=== PATIENT | female | born 1980 | race African-American/Black ===

== ENCOUNTER 2016-06-18 15:58 | Emergency (ER) ==
[2016-06-18 16:12] VITALS: BP 145/82
--- NOTE | 2016-06-18 16:19 | PROVIDER DOCUMENTATION ---
HPI-Abdominal Pain/GI Problem - General Chief Complaint: Flank Pain Stated Complaint: LEFT SIDE ABD PAIN/11 WEK PREG Time Seen by Provider: 06/18/16 16:14 Source: patient Allergies/Adverse Reactions: Patient Allergies Allergy/AdvReac Type Severity Reaction Status Date / Time No Known Allergies Allergy Verified 11/07/15 10:01 Home Medications: Clonidine [Catapres] 0.2 mg PO BID 06/28/14 - History of Present Illness-ABD Nature of Presenting Problems: 36 y/o AAF , approx 11 wks by LMP in March, week, reports left flank pain that began this morning that is stabbing non radiating comes and goes, denies hematuria, frequency, dysuria or urgency. denies fevers or chills. Also having sinus congestion. Denies vaginal bleeding or vaginal discharge. No hx of kidney stones. Review of Systems - Adult - REVIEW OF SYSTEMS - ADULT Constitutional: reports: no symptoms reported. denies: chills, fever, fatique Eyes: reports: no symptoms reported. denies: blurred vision, double vision, eye pain Ears, Nose, Mouth & Throat: reports: no symptoms reported. denies: ear pain, nose pain, throat pain Cardiovascular: reports: no symptoms reported. denies: chest pain, palpitations Respiratory: reports: no symptoms reported. denies: cough, shortness of breath , wheezing Gastrointestinal: reports: see HPI, abdominal pain. denies: diarrhea, nausea, vomiting Genitourinary: reports: see HPI, flank pain (left). denies: dysuria, discharge , frequency, hematuria, urgency Musculoskeletal: reports: no symptoms reported Integumentary: reports: no symptoms reported. denies: rash Neurological: reports: no symptoms reported. denies: ataxia, dizziness/vertigo , headache/migraines Psychiatric: reports: no symptoms reported Endocrine: reports: no symptoms reported Hematologic/Lymphatic: reports: no symptoms reported Allergic/Immunologic: reports: no symptoms reported All Other Systems: Reviewed and Negative Past History - Adult - PAST MEDICAL HISTORY-ADULT Review of Records: reports: Old Records Reviewed, Nursing Assessment Review, Medications Reviewed, Social history reviewed & non-contributory. Major Childhood Illnesses: reports: denies history Cardiovascular: reports: HTN Respiratory: reports: denies history Gastrointestinal: reports: denies history Obstetrical/Gynecological: reports: denies history Genitourinary: reports: denies history Musculoskeletal: reports: denies history Neurological: reports: denies history Endocrine/Immune: reports: Diabetes Other Conditions: reports: denies history - PRIOR SURGERIES/PROCEDURES Surgical/Procedure History: reports: - PRIOR HOSPITALIZATIONS Prior Hospitalizations: reports: none - IMMUNIZATION STATUS Childhood Immunizations: See Nurse Assessment Flu Vaccine: See Nurse Assessment - FAMILY HISTORY Family History: reviewed, not pertinent Physical Exam-General - PHYSICAL EXAM-ADULT Initial Vital Signs Reviewed: Yes - CONSTITUTIONAL General Appearance: appears well, alert, no apparent distress - EYES Eyes: PERRL/EOMI, pink conjunctivae - HEAD, EARS, NOSE, MOUTH & THROAT HENMT: normocephalic/atraumatic, moist mucous membranes - NECK Neck: non-tender, full range of motion, supple, normal inspection. negative: lymphadenopathy - RESPIRATORY Respiratory: chest non-tender, lungs clear, normal breath sounds, no pleuratic chest pain, no respiratory distress, no accessory muscle use. negative: respiratory distress, decreased breath sounds, accessory muscle use, crackles, rales, rhonchi, wheezing - CARDIOVASCULAR Cardiovascular: normal peripheral pulses, regular rate, rhythm, no edema - GASTROINTESTINAL (ABDOMEN) Abdominal Exam: normal bowel sounds, soft, no organomegaly, no pulsatile mass, tenderness (suprapubic). negative: abdominal bruit, abnormal bowel sounds, distended, guarding, rigid, rebound - LYMPHATIC Lymphatic: no adenopathy - MUSCULOSKELETAL Back Exam: normal inspection, no CVA tenderness. negative: CVA tenderness Extremity: normal range of motion, non-tender, normal gait - SKIN Integumentary: normal color, normal turgor, warm/dry - NEUROLOGIC Neurologic: grossly normal, no motor/sensory deficits - PSYCHIATRIC Psych/Mental Status: normal mood/affect, normal thought content, normal thought process, oriented x 3 Progress - REASSESSMENT Reassessment #1 Time Reassessed: 16:26 (FHTs not specifically detected but movement detected per L&D nurse) Status: other Departure - Departure Time of Disposition Order: 17:00 DIAGNOSIS: Left against medical advice Disposition: [place] [id number] Certified Medical Emergency: Emergent Condition: Stable Referrals: None,PCP [Primary Care Provider] - Attestation - Physician/ Mid-level Attestation Patient care was provided by Mid-level provider (ANGIO TECHNOLOGIST/PA):: Yes Mid-level provider:: Maricarmen Gomez Mid-level documentation review:: The Mid-level provider documentation, treatment plan and medical decision making was reviewed by the physician who agrees with all treatment and medical decision making by the MLP.
== END 2016-06-18 17:50 | disposition left against medical advice (07) ==
LOC: P.ED 15:58
DX: O26.891 Other specified pregnancy related conditions, first trimester (principal); Z3A.11 11 weeks gestation of pregnancy; R10.30 Lower abdominal pain, unspecified; R10.9 Unspecified abdominal pain; O16.1 Unspecified maternal hypertension, first trimester; O24.911 Unspecified diabetes mellitus in pregnancy, first trimester; Z79.899 Other long term (current) drug therapy; Z79.52 Long term (current) use of systemic steroids
CPT/HCPCS: 99282

== ENCOUNTER 2016-12-30 04:57 | Inpatient (IN) ==
--- NOTE | 2016-12-29 13:43 | HISTORY AND PHYSICAL ---
ADMITTING DIAGNOSIS: Term , for repeat section. SUMMARY: Bharti Bills is a 36-year-old, 3, para 2-0-0-2 at term gestation. Her has been complicated by chronic hypertension. She is on antihypertensives. She also is an insulin-requiring diabetic. We are therefore proceeding with a repeat . Risk of the surgery including pain, bleeding, infection, bowel or bladder injury, and anesthesia complications have been discussed in detail. I feel it is necessary to deliver her for 39 weeks due to her conditions. This has also been recommended by maternal medicine. PAST MEDICAL HISTORY: Patient has had 2 previous C-sections for cephalopelvic disproportion. She has chronic hypertension. She has diabetes. PHYSICAL EXAMINATION: GENERAL: Shows a short-statured gravid female. Her weight is 183 pounds. Blood pressure is 130/72. CARDIOVASCULAR: Regular rate and rhythm without murmurs, rubs, gallops. PULMONARY: Clear. BREASTS: No masses. ABDOMEN: Gravid. Cervix is closed. EXTREMITIES: Trace edema. IMPRESSION: 1. Term . 2. Previous section times two. PLAN: We will proceed with repeat . Risks, benefits, possible complications, obstetrical indications have been discussed in detail. cc: Elias Guaman MD
[2016-12-30] MEDS ORDERED: KEFZOL 1 GM/D5W 1 GM/50 ML IVPB IV PRN (05:00)
[2016-12-30] MEDS ORDERED: LR 1,000 ML IV SCH (05:00)
[2016-12-30] MEDS ORDERED: BICITRA PO ONE (05:30)
[2016-12-30] MEDS ORDERED: PEPCID IV ONE (05:30)
[2016-12-30 06:15] LABS: MANUAL DIFF NEEDED? NO
[2016-12-30 06:35] LABS: BASO% 0.2 % (0.0-0.8); EOS# 0.06 X1000 (0.0-0.7); EOS% 0.5 % (0.0-10.0); HEMOGLOBIN 11.4 g/dL (12.0-16.0); IMM GRAN# 0.04 X1000 (0.0-0.04); IMM GRAN% 0.3 % (0.0-0.5); LYMPH# 2.08 X1000 (1.2-3.4); LYMPH% 18.1 % (20.5-51.1); MCH 28.6 PG (27-31); MCHC 33.5 g/dL (33-37); MCV 85.2 FL (81-99); MONO# 1.17 X1000 (0.11-0.59); MONO% 10.2 % (1.7-9.3); MPV 11.6 FL (7.4-10.4); NEUT% 70.7 % (42.2-75.2); PLT 201 X1000 (130-400); RBC 3.99 XMIL (4.2-5.4)
[2016-12-30] MEDS ORDERED: EPHEDRINE ONE (06:38)
[2016-12-30] MEDS ORDERED: DIPRIVAN 1% ONE (06:39)
[2016-12-30] MEDS ORDERED: DURAMORPH ONE (06:40)
[2016-12-30 07:58] LABS: URINE SOURCE VOIDED
[2016-12-30 08:08] LABS: UR AMPHETAMINES QUAL NONE DETECTED (NONE DETECT); UR BARBITUATES QUAL NONE DETECTED (NONE DETECT); UR BENZODIAZEPIN QUAL NONE DETECTED (NONE DETECT); UR CANNABINOIDS QUAL NONE DETECTED (NONE DETECT); UR COCAINE QUAL NONE DETECTED (NONE DETECT); UR MDMA QUAL NONE DETECTED (NONE DETECT); UR METHADONE QUAL NONE DETECTED (NONE DETECT); UR METHAMPHETAMINE QUAL NONE DETECTED (NONE DETECT); UR OPIATES QUAL NONE DETECTED (NONE DETECT); UR OXYCODONE QUAL NONE DETECTED (NONE DETECT); UR PCP QUAL NONE DETECTED (NONE DETECT); UR TCA QUAL NONE DETECTED (NONE DETECT)
[2016-12-30 08:10] LABS: BILIRUBIN URINE NEGATIVE (NEGATIVE); BLOOD URINE NEGATIVE (NEGATIVE); CLARITY CLEAR (CLEAR); COLOR YELLOW; LEUKOCYTES URINE 1+ (NEGATIVE); NITRITE URINE NEGATIVE (NEGATIVE); PROTEIN URINE NEGATIVE (NEGATIVE); UROBILINOGEN URINE NORMAL
[2016-12-30] MEDS ORDERED: NORCO-5 PO PRN (08:25)
[2016-12-30] MEDS ORDERED: PITOCIN IM PRN (08:25)
[2016-12-30] MEDS ORDERED: DEMEROL PO PRN ×2 (08:25)
[2016-12-30] MEDS ORDERED: NORCO-10 PO PRN (08:25)
[2016-12-30] MEDS ORDERED: M-M-R II VACCINE SUBQ ONE (08:25)
[2016-12-30] MEDS ORDERED: HYDROXYZINE PO PRN (08:25)
[2016-12-30] MEDS ORDERED: HYDROXYZINE IM PRN (08:25)
[2016-12-30] MEDS ORDERED: DULCOLAX PR PRN (08:25)
[2016-12-30] MEDS ORDERED: PERCOCET-5 PO PRN (08:25)
[2016-12-30] MEDS ORDERED: BOOSTRIX VACCINE IM ONE (08:25)
[2016-12-30] MEDS ORDERED: NEO-SYNEPHRINE ONE (08:25)
[2016-12-30] MEDS ORDERED: PITOCIN 20 UNITS/LR 20 UNITS/1,000 ML IV.SOLN IV ONE (08:25)
[2016-12-30] MEDS ORDERED: PHENERGAN IM PRN (08:25)
[2016-12-30] MEDS ORDERED: ZOFRAN ONE (08:25)
[2016-12-30] MEDS ORDERED: CYTOTEC PO PRN (08:25)
[2016-12-30] MEDS ORDERED: DEMEROL IM PRN (08:25)
[2016-12-30] MEDS ORDERED: AMBIEN PO PRN (08:25)
[2016-12-30] MEDS ORDERED: PITOCIN ONE (08:26)
[2016-12-30] MEDS ORDERED: NARCAN INJ PRN (08:32)
[2016-12-30] MEDS ORDERED: ZOFRAN ODT PO PRN (08:32)
[2016-12-30] MEDS ORDERED: ZOFRAN IV PRN ×2 (08:32)
[2016-12-30] MEDS ORDERED: BENADRYL IV PRN (08:32)
[2016-12-30] MEDS ORDERED: OFIRMEV 1000 MG/ISOTONIC SOLN 1,000 MG/100 ML BOTTLE IV PRN (08:33)
[2016-12-30] MEDS: MORPHINE IV PRN (08:55)
[2016-12-30] MEDS: OFIRMEV 1000 MG/ISOTONIC SOLN 1,000 MG/100 ML BOTTLE IV SCH ×3 (08:56→20:02)
[2016-12-30] MEDS ORDERED: GLUCOPHAGE PO SCH (09:00)
[2016-12-30] MEDS: MYLICON PO SCH ×3 (11:19→21:09)
[2016-12-30] MEDS: ADALAT CC PO SCH (11:19)
[2016-12-30] MEDS: GLUCOPHAGE PO SCH ×2 (11:20→16:38)
[2016-12-30] MEDS: DIABETA PO SCH (11:20)
[2016-12-30] MEDS: TRANDATE PO SCH ×2 (11:21→21:15)
[2016-12-30 12:30] LABS: HEMATOCRIT 31.1 % (37.0-47.0); HEMOGLOBIN 10.2 g/dL (12.0-16.0)
--- NOTE | 2016-12-30 14:49 | OPERATIVE NOTE ---
PROCEDURE DATE: 12/30/2016 SURGEON: Dr. Elias Guaman. RESULTS TECHNICIAN: Dr. Elias Bojorquez. ANESTHESIA: Spinal and IV sedation by Dr. Nathan Olmos. OPERATION PERFORMED: Repeat low transverse section. PREOPERATIVE DIAGNOSES: 1. A 38-1/2-week . 2. Chronic hypertension. 3. Insulin-requiring diabetes. 4. Previous section x2. POSTOPERATIVE DIAGNOSES: 1. A 38-1/2-week . 2. Chronic hypertension. 3. Insulin-requiring diabetes. 4. Previous section x2. 5. Extensive pelvic adhesions. FINDINGS: At 0711, a 6-pound 15-ounce male was delivered in a vertex presentation. Apgars were 7 at one minute and 9 at five minutes. SUMMARY: Ms. Bills was taken back to the operating room, where spinal anesthetic was placed. She was then placed in supine position with a left lateral tilt. The abdomen was prepped and draped in usual fashion. A Sandy catheter was placed in the urinary bladder. Once satisfactory conduction anesthesia was demonstrated, a Pfannenstiel incision was made. This was taken down to the fascia, where the fascia was incised transversely with moderate difficulty due to her extensive adhesions. Again with difficulty due to adhesions, the rectus muscle was dissected away and the peritoneum was entered. There were again adhesions encountered and myometrial adhesions to the abdominal wall were taken down. This allowed us to create a bladder flap and then a low transverse incision was made. This incision was taken down to the amniotic membranes. The incision was extended laterally using digital pressure. Membranes were ruptured, revealing clear fluid. The 's vertex was delivered through this incision without difficulty. The oropharynx was bulb suctioned. The shoulders and body delivered without complications. The cord was clamped, cut, and the infant was handed to the nurses for care and evaluation. Cord blood was obtained. Placenta was manually removed. The uterus was delivered onto the abdominal wall and explored. All membrane fragments were removed. The myometrium was then reapproximated using multiple running and [id number] chromic sutures due to extensive bleeding. Bleeding was especially severe on the patient's left side. We had to incorporate the round ligament into the incision to help achieve hemostasis. Again, multiple sutures were required and finally hemostasis was achieved. The uterus was placed back in the pelvic cavity. There were a few other bleeding spots identified at this point, where several more [id number] chromic sutures and cautery was used to achieve hemostasis. We then put Surgicel in through the left lateral incision for added hemostasis. Sponge, instrument, and needle counts were reported as correct at this time. The rectus muscle was reapproximated in the midline using interrupted chromic sutures. Second sponge and instrument counts were reported as correct. The fascia was closed using running Vicryl sutures x2. Again, this was moderately difficult due to the extensive adhesions. We then reapproximated the skin edges using Vicryl suture. Blood loss was estimated at 1000 mL. The patient had received IV sedation during the surgery due to pain. We will check a hemoglobin and hematocrit at noontime. We will watch her blood sugars closely and we will start her oral hypoglycemic agents. cc: Elias Guaman MD
[2016-12-30] MEDS: PERCOCET-10 PO PRN (16:18)
[2016-12-30] MEDS: PITOCIN 10 UNITS/LR 10 UNIT/1,000 ML IV.SOLN IV SCH (17:03)
[2016-12-30] MEDS: MYLICON PO PRN (20:02)
[2016-12-30] MEDS: PERICOLACE PO SCH (21:15)
[2016-12-31] MEDS: OFIRMEV 1000 MG/ISOTONIC SOLN 1,000 MG/100 ML BOTTLE IV SCH (02:18)
[2016-12-31] MEDS: PITOCIN 10 UNITS/LR 10 UNIT/1,000 ML IV.SOLN IV SCH (02:18)
[2016-12-31] MEDS: MYLICON PO PRN ×2 (04:50→12:08)
[2016-12-31 06:10] LABS: HEMATOCRIT 30.4 % (37.0-47.0); HEMOGLOBIN 9.8 g/dL (12.0-16.0); MCH 27.7 PG (27-31); MCHC 32.2 g/dL (33-37); MCV 85.9 FL (81-99); MPV 11.9 FL (7.4-10.4); RBC 3.54 XMIL (4.2-5.4)
[2016-12-31] MEDS ORDERED: LR 1,000 ML IV SCH (07:59)
[2016-12-31] MEDS: PERCOCET-10 PO PRN ×3 (09:05→15:31)
[2016-12-31] MEDS: DIABETA PO SCH (09:07)
[2016-12-31] MEDS: GLUCOPHAGE PO SCH ×2 (09:07→18:08)
[2016-12-31] MEDS: ADALAT CC PO SCH (09:08)
[2016-12-31] MEDS: TRANDATE PO SCH ×2 (09:08→21:18)
[2016-12-31] MEDS: PRECARE PO SCH (09:09)
[2016-12-31] MEDS: MYLICON PO SCH ×4 (09:10→21:18)
--- NOTE | 2016-12-31 13:06 | PROGRESS NOTE ---
DATE: 12/31/2016 SUBJECTIVE: She is post and postop day 1 from a repeat delivery. OBJECTIVE: Vital Signs: Temperature 98.4 degrees, pulse 104, blood pressure 137/70. Respirations 20. She is sitting in the chair. She seems to be in mild distress but communicates without difficulty. PHYSICAL EXAMINATION: Lungs are clear. Heart: Regular sinus rhythm. Abdomen is slightly distended and tense to the touch. No rebound. Incision is dry and intact. +2 lower extremity edema. LABORATORY VALUES: Hemoglobin and hematocrit of 9.8/30.4. Glucose this morning at 2:00 was 58 and then at 8:00 this morning 67. No other abnormal values, so we will continue current management with probable discharge in the morning. cc: MD Elias Choi MD
[2016-12-31] MEDS: NICODERM PATCH TD SCH (15:23)
[2016-12-31] MEDS: MOTRIN PO PRN (15:31)
[2016-12-31] MEDS ORDERED: FLEET ENEMA PR PRN (17:30)
[2016-12-31] MEDS ORDERED: CITRATE OF MAGNESIA PO ONE (20:05)
[2016-12-31] MEDS: PERICOLACE PO SCH (21:17)
[2017-01-01] MEDS: MYLICON PO PRN (01:15)
[2017-01-01] MEDS: MOTRIN PO PRN (01:15)
[2017-01-01] MEDS: GLUCOPHAGE PO SCH (08:57)
[2017-01-01] MEDS: MYLICON PO SCH ×2 (08:57→12:35)
[2017-01-01] MEDS: DIABETA PO SCH (08:57)
[2017-01-01] MEDS: ADALAT CC PO SCH (08:57)
[2017-01-01] MEDS: TRANDATE PO SCH (08:57)
[2017-01-01] MEDS: PRECARE PO SCH (08:57)
[2017-01-01] MEDS: NICODERM PATCH TD SCH (08:57)
--- NOTE | 2017-01-01 11:27 | PROGRESS NOTE ---
DATE: 01/01/2017 SUBJECTIVE: She is postop and day 2. Ms. Bills complains of abdominal pain and distention. She has not passed gas, and she was nauseated with magnesium citrate and thinks she would feel better if she had a bowel movement. OBJECTIVE: Temperature is 96.5, she has been afebrile since surgery. Pulse low 100s, blood pressure 145/86, respirations 20. She is in moderate distress with abdominal distention. Lungs: Clear. Heart: Regular sinus rhythm. Abdomen: Very tense with mild guarding. No rebound. There is +2 lower extremity edema. ASSESSMENT AND PLAN: We did try enemas yesterday, both Fleets and soapsuds and did try magnesium citrate which she did not tolerate very well. She has bowel sounds. We will get a KUB today. If it appears to be just constipation, we will treat with Linzess. If it is obstruction, we will make n.p.o. and possibly place NG tube. cc: MD Elias Choi MD
--- NOTE | 2017-01-01 11:28 | Diag Imaging Result Doc PS360 ---
ABDOMEN FLAT/UPRIGHT - 01/01/2017 INDICATION: abd distention TECHNIQUE: Two views COMPARISON: 02/23/2015 FINDINGS: There is moderate constipation of the proximal colon. There are numerous abnormally dilated loops of small bowel in the lower abdomen and pelvis. These measure up to 4.9 cm. There are also numerous air-fluid levels. Very little colon or rectal gas. No definite free air. IMPRESSION: 1. Findings highly concerning for small bowel obstruction. 2. Constipation. Electronically signed by Tom Varghese 01/01/2017 11:26 AM
[2017-01-01] MEDS ORDERED: LINZESS PO SCH (12:00)
[2017-01-01] MEDS ORDERED: NS 500 ML IV ONE (12:09)
[2017-01-01] MEDS: NS 1,000 ML IV SCH ×2 (13:15→20:12)
[2017-01-01] MEDS ORDERED: ZOFRAN IV PRN (17:10)
[2017-01-01] MEDS ORDERED: TORADOL IV PRN (17:10)
[2017-01-01] MEDS ORDERED: CHLORASEPTIC SPRAY MT PRN (18:12)
--- NOTE | 2017-01-01 19:25 | Diag Imaging Result Doc PS360 ---
CHEST-PORTABLE - 01/01/2017 INDICATION: NG tube placement TECHNIQUE: COMPARISON: 01/19/2016 FINDINGS: There is a nasogastric tube in good position with the tip in the stomach. IMPRESSION: Nasogastric tube in the stomach. Electronically signed by Tom Varghese 01/01/2017 7:23 PM
[2017-01-01] MEDS: LABETALOL IV SCH (20:12)
[2017-01-01] MEDS ORDERED: HUMALOG (PARKWAY) SUBQ SCH (21:00)
[2017-01-01] MEDS: MORPHINE IV PRN (23:52)
[2017-01-02] MEDS: HUMALOG (PARKWAY) SUBQ SCH ×4 (01:56→20:16)
[2017-01-02 06:06] LABS: AGAP 12; BUN 11 mg/dL (8-22); CALCIUM 8.5 mg/dL (8.8-10.2); CHLORIDE 100 mmol/L (98-107); COSMO 273; POTASSIUM 2.9 mmol/L (3.5-5.1); SODIUM 137 mmol/L (136-145); TCO2 25 mmol/L (25-35)
[2017-01-02] MEDS: LABETALOL IV SCH (08:43)
[2017-01-02] MEDS: NS + KCL 40 MEQ 1,000 ML IV SCH ×3 (08:43→23:52)
[2017-01-02] MEDS: NICODERM PATCH TD SCH (08:43)
[2017-01-02] MEDS ORDERED: PERCOCET-5 PO PRN ×2 (19:56)
[2017-01-02] MEDS: TRANDATE PO SCH (21:27)
[2017-01-02] MEDS: KLOR-CON PO SCH (21:27)
[2017-01-02] MEDS ORDERED: GLUCOPHAGE PO SCH (21:30)
[2017-01-02] MEDS ORDERED: DIABETA PO SCH (21:30)
[2017-01-03] MEDS ORDERED: NS + KCL 40 MEQ 1,000 ML IV SCH (07:00)
[2017-01-03 07:09] LABS: AGAP 8; BUN 8 mg/dL (8-22); CALCIUM 7.8 mg/dL (8.8-10.2); CHLORIDE 108 mmol/L (98-107); COSMO 277; POTASSIUM 4.5 mmol/L (3.5-5.1); SODIUM 138 mmol/L (136-145); TCO2 22 mmol/L (25-35)
[2017-01-03 08:18] VITALS: BP 121/75
[2017-01-03] MEDS: TRANDATE PO SCH (09:14)
[2017-01-03] MEDS: KLOR-CON PO SCH (09:14)
[2017-01-03] MEDS ORDERED: DEPO-PROVERA IM ONE (10:16)
[2017-01-03] MEDS: DEPO-PROVERA IM ONE ×2 (11:20→11:36)
[2017-01-03] MEDS: HUMALOG (PARKWAY) SUBQ SCH (11:36)
--- NOTE | 2017-01-04 04:06 | DISCHARGE SUMMARY ---
ADMISSION DATE: 12/30/2016 DISCHARGE DATE: 01/03/2017 ADMITTING DIAGNOSIS: Term , for delivery. DISCHARGE DIAGNOSES: 1. Intrauterine , delivered. 2. Postoperative ileus, resolved. 3. Diabetes. 4. Hypertension. CONDITION: Stable. DIET: As tolerated. ACTIVITY: Routine postop and instructions. FOLLOWUP: Follow up this week with Dr. Guaman. DISCHARGE MEDICATIONS: Continue all previous medications. We will add oxycodone 1-2 every 4 hours as needed for pain 5 mg, #40 given. HISTORY OF PRESENT ILLNESS: Please refer to Ms. Bills's records, H and P, and operative note. HOSPITAL COURSE: She underwent a repeat delivery. Afterwards, she was very slow advancing her diet and her bowel activity. KUB revealed possible small bowel obstruction. Suspect it was a postop ileus. NG tube was placed. It was in place for slightly over 24 hours at which point, it was clamped and she did well eating. Then it was removed and she has done well, eating with no nausea. Still had some abdominal pain but improved. There is less distention. She desires discharge. PHYSICAL EXAMINATION: Vital Signs: Temperature temp 97.9 degrees. She has remained afebrile throughout her hospital stay. Pulse 83, respirations 18, blood pressure 126/73. General: She is lying in bed, in no acute distress. Neck: Supple. Lungs: Clear. Heart: Regular sinus rhythm. Abdomen: Distended. She has no rebound. Slight guarding. Good bowel sounds. Incision dry and intact. Extremities: No cyanosis, clubbing, or edema in her extremities. LABORATORY VALUES: From this morning, sodium and potassium are normal. BUN and creatinine normal. DISPOSITION: We will discharge with the above instructions. cc: MD Elias Choi MD
== END 2017-01-03 11:25 | disposition home or self-care (01) ==
LOC: P.LD 04:57
PROVIDERS: ADMIT Obstetrics & Gynecology; ATTEND Obstetrics & Gynecology